=== PATIENT | female | born 1955 | race Caucasian/White ===

== ENCOUNTER → 2018-03-14 | Outpatient (CLI) | payer OTHER ==
--- NOTE | 2018-03-14 15:17 | DIREP ---
PROCEDURE: MRI SPINE CERVICAL W/O TECHNIQUE:Multiplanar MR images of the cervical spine were obtained without contrast. COMPARISON:None. INDICATIONS:HNP FINDINGS: ALIGNMENT:Straightening of the normal cervical curvature. Trace retrolisthesis of C6 on C7 measuring 2 mm. VERTEBRAE:Normal. SPINAL CORD:Normal. PARASPINAL AREA:Normal. OTHER:No additional findings. CERVICAL DISC LEVELS C2-C3:Normal. C3-C4:Normal. C4-C5:Moderate disc height loss with broad-based mild disc bulge causing moderate left and mild to moderate right neural foraminal narrowing. There is mild spinal canal narrowing. C5-C6:Broad-based disc bulge and facet hypertrophy causing moderate left and mild right neural foraminal narrowing. Mild spinal canal narrowing. C6-C7:Moderate disc height loss and broad-based disc bulge with facet hypertrophy causes moderate to severe neural foraminal and moderate spinal canal narrowing. C7-T1:Broad-based disc bulge with mild left and mild spinal canal narrowing. No right neural foraminal narrowing. CONCLUSION: 1. Trace retrolisthesis of C6 on C7 measuring 2 mm. 2. Degenerative changes at C6-C7 causes moderate to severe neural foraminal and moderate spinal canal narrowing. Other degenerative changes as above. Dictated by: Josiah Guaman MD on 03/14/2018 at 03:07 PM
== END | disposition home or self-care (01) ==
LOC: MRI 10:36
PROVIDERS: ATTEND Orthopaedic Surgery
DX: M47.892 Other spondylosis, cervical region (principal); M48.02 Spinal stenosis, cervical region; M50.20 Other cervical disc displacement, unspecified cervical region
CPT/HCPCS: 72141

== ENCOUNTER → 2018-05-04 | Outpatient (CLI) | payer OTHER, MEDICAID ==
--- NOTE | 2018-05-05 11:31 | DIREP ---
PROCEDURE:MRI SPINE LUMBAR W/O COMPARISON:None. INDICATIONS:M54.17 LUMBOSACRAL RADICULOPATHY, M54.16 LUMBAR RADICULOPATHY, M51.37 DDD TECHNIQUE:A comprehensive examination was performed utilizing a variety of imaging planes and imaging parameters to optimize visualization of suspected pathology. Images were performed without intravenous gadolinium contrast. FINDINGS: ALIGNMENT:Minimal L4 retrolisthesis measures 2 mm. Straightening of the lordosis. Mild left-sided curvature lower lumbar spine. VERTEBRA:No fracture, pars defect, or osseous lesion. CORD/CAUDA EQUINA:Normal size, contour, and signal intensity. PARASPINAL AREA:Normal with no visible mass. OTHER:None. LUMBAR DISC LEVELS T12-L1:Mild facet arthropathy. No significant foraminal or spinal stenosis. L1-L2:Minimal dorsal bulge. No significant foraminal or spinal stenosis. L2-L3:Moderate facet arthropathy. Thickened ligamentum flavum. Disc space height loss. Moderate dorsal bulge. Mild foraminal and spinal stenosis. L3-L4:Moderate facet arthropathy. Dorsal bulge is moderate. Disc space height loss. Moderate foraminal and spinal stenosis. L4-L5:Severe disc space height loss. Moderate facet arthropathy. Endplate degenerative changes. Dorsal disc osteophyte complex. Severe foraminal and spinal stenosis. Small facet synovial cyst on the left extends into the lateral paraspinal soft tissues measuring 7 mm. L5-S1:Severe facet arthropathy. Small central protrusion. Severe foraminal stenosis and mild spinal stenosis with encroachment on lateral recess nerve roots. CONCLUSION: 1. Severe degenerative disc disease and facet arthropathy at various levels. See above discussion. Dictated by: Eliecer Azar M.D. on 05/05/2018 at 11:26 AM
== END | disposition home or self-care (01) ==
LOC: RAD 14:55
PROVIDERS: ATTEND Anesthesiology Pain Medicine
DX: M51.17 Intervertebral disc disorders with radiculopathy, lumbosacral region (principal); M12.88 Other specific arthropathies, not elsewhere classified, other specified site; M48.061 Spinal stenosis, lumbar region without neurogenic claudication; M51.27 Other intervertebral disc displacement, lumbosacral region; M47.896 Other spondylosis, lumbar region; M25.78 Osteophyte, vertebrae; M71.38 Other bursal cyst, other site; M50.121 Cervical disc disorder at C4-C5 level with radiculopathy
CPT/HCPCS: 72148

== ENCOUNTER 2018-08-12 18:09 | Emergency (ER) | payer OTHER, MEDICAID ==
[~2018-08-12] VITALS: Ht 167.6 cm; Wt 81.6 kg
--- NOTE | 2018-08-12 18:09 | NUR ---
ARRIVAL PT ARRIVED VIA STRETCHER BY [facility] C/O LEFT ANKLE PAIN. PT STATES THAT AROUND 1530 WAS AT THE [facility] IN [place] WHEN SHE BECAME DIZZY AND FELL. PT C/O LEFT ANKLE PAIN. PT HAS ANKLE BRACE ON LEFT ANKLE UPON ARRIVAL. NO OBVIOUS DEFORMITY NOTED. EDP NOTIFIED OF PT ARRIVAL.
--- NOTE | 2018-08-12 18:17 | ER.PDOC ---
General Chief Complaint: Requesting Medical Care Stated Complaint: FALL Time seen by MD: 18:12 Source: patient, EMS Exam Limitations: no limitations History of Present Illness Initial Comments Pt fell this afternoon at about 3:30 after she got dizzy and injured left ankle , right elbow and knee Occurred: this afternoon Where: home Severity: moderate Injuries/Pain Location: upper extremity, lower extremity Loss of Consciousness: Dazed Associated Symptoms: denies symptoms Allergies: Coded Allergies: No Known Allergies (Unverified , 08/12/18) Review of Systems Musculoskeletal: see HPI All Other Systems: Reviewed and Negative Physical Exam General Appearance: No Apparent Distress, WD/WN Head: No Evidence of Injury Eyes: bilateral eye normal inspection Ears, Nose, Mouth, Throat: Hearing Grossly Normal, No Evidence of ENT Injury, No Dental Injury Neck: Non-Tender, Normal Alignment, Nexus criteria neg, Normal Inspection Cardiovascular/Respiratory: Regular Rate, Rhythm, No M/R/G, Normal Peripheral Pulses, No JVD, Normal Breath Sounds, No Respiratory Distress Gastrointestinal: Normal Bowel Sounds, No Organomegaly, No Pulsatile Mass, Non Tender, Soft Back: Normal Inspection, No CVA Tenderness, No Vertebral Tenderness Extremities: Joint Effusion (left ankle), Tenderness (left ankle, right knee and elbow) Skin: Normal Color, Warm/Dry, Other (abrasions on elbow and right knee) Hye Coma Score Best Eye Response: (4) Open Spontaneously Best Verbal Response: (5) Oriented Best Motor Response: (6) Obeys Commands Patience Total: 15 Progress Progress No fractures visualized, only soft tissue swelling Departure Time of Disposition: 18:55 Disposition: 01 HOME, SELF-CARE Impression: Primary Impression: Ankle sprain Additional Impression: Multiple abrasions Condition: Stable Hospital Course Stable Patient Instructions: Ankle Sprain, Ankle Sprain, Acute, with Phase I Rehab- SportsMed, Ankle Sprain, [id number] Referrals: JULITO STEWART MULTILITH OPERATOR (PCP) PRIMARY CARE PROVIDER Duration or Time Spent with Pa: 15 Problem Qualifiers SAHARA DOWNING MD Aug 12, 2018 18:17
[2018-08-12 18:18] VITALS: BP 136/77
--- NOTE | 2018-08-12 18:37 | NUR ---
RAD RADIOLOGY AT BEDSIDE.
--- NOTE | 2018-08-12 18:48 | DIREP ---
PROCEDURE:XRAY ELBOW 2VWS-RT COMPARISON:None. INDICATIONS:Fall FINDINGS:AP, lateral, and oblique view. BONES:Normal. JOINTS:Normal. No displaced anterior or posterior fat pads. SOFT TISSUES:Normal. OTHER:Normal. CONCLUSION:No acute visible fracture. See above description. Dictated by: Ishan Ac MD on 08/12/2018 at 06:46 PM
--- NOTE | 2018-08-12 18:48 | DIREP ---
PROCEDURE:XRAY ANKLE MIN 3VWS-LT COMPARISON:None. INDICATIONS:Fall. Pain FINDINGS:AP, lateral, and oblique view. BONES:There is a bandage or wrap that does result in mild laceration of the structures. No evidence of acute fracture. Moderate-sized inferior calcaneal bone spur. JOINTS:Normal. SOFT TISSUES:Moderate lateral malleolar soft tissue swelling. OTHER:No additional findings. CONCLUSION: No fracture. No dislocation. Moderate lateral malleolar soft tissue swelling. Moderate-sized inferior calcaneal bone spur. Dictated by: Ishan Ac MD on 08/12/2018 at 06:44 PM
--- NOTE | 2018-08-12 18:49 | DIREP ---
PROCEDURE:XRAY KNEE 2 VWS-RT COMPARISON:None. INDICATIONS:Fall FINDINGS:AP and lateral view BONES:No fracture. JOINTS:Mild degenerate change small osteophytes involving the medial compartment and posterior tibia. Small bone spur involving the superior aspect of the patella. No joint effusion. No dislocation. SOFT TISSUES:Normal. OTHER:No additional findings. CONCLUSION:No fracture. Mild degenerative changes within the medial compartment. Dictated by: Ishan Ac MD on 08/12/2018 at 06:46 PM
--- NOTE | 2018-08-12 18:57 | NUR ---
DISCHARGE PT IS CALLING FAMILY TO PICK HER UP
[2018-08-12 19:27] VITALS: BP 136/77
== END 2018-08-12 19:05 | disposition home or self-care (01) ==
LOC: EDBD 18:09 → ER 18:09
DX: S93.402A Sprain of unspecified ligament of left ankle, initial encounter (principal); S80.211A Abrasion, right knee, initial encounter; S50.311A Abrasion of right elbow, initial encounter; W19.XXXA Unspecified fall, initial encounter; Y93.89 Activity, other specified; Y92.098 Other place in other non-institutional residence as the place of occurrence of the external cause; Y99.8 Other external cause status
CPT/HCPCS: 73560; 99284; 73070-RT; 73610-LT

== ENCOUNTER 2018-08-21 11:39 | Emergency (ER) | payer OTHER, MEDICAID ==
[~2018-08-21] VITALS: Ht 165.1 cm; Wt 72.6 kg
[2018-08-21] MEDS ORDERED: SOLU-MEDROL IV STA (11:49)
[2018-08-21] MEDS ORDERED: NS 1000ML 1,000 ML STA (11:49)
[2018-08-21] MEDS ORDERED: SOLU-MEDROL ONE (11:57)
[2018-08-21 11:58] VITALS: BP 106/64
--- NOTE | 2018-08-21 12:03 | PCM.EKG ---
[facility] Test Date: 2018-08-21 Test Time: 12:02:22 Pat Name: MARILIN DAVIDSON Department: Room: Gender: F Gearman: RT : 1955 Requested By: GOSIA HALL Order Number: [id number] Reading MD: Measurements Intervals [place] Rate: 53 P: 56 VT: 186 QRS: 69 QRSD: 88 T: 68 QT: 504 QTc: 472 Interpretive Statements Sinus bradycardia with sinus arrhythmia Prolonged QT Abnormal ECG No previous ECG available for comparison Please click the below link to view image of tracing.
[2018-08-21 12:10] LABS: BASOPHIL % 0.3 % (0.0-0.2); EOSINOPHIL # 0.2 10^3/uL (0.0-0.2); HEMOGLOBIN 13.4 g/dL (12.0-15.0); LYMPHOCYTES # 2.8 10^3/uL (1.0-4.8); LYMPHOCYTES % 28.8 % (24.0-44.0); MEAN CELL HGB 33.5 pg (26-34); MEAN CELL HGB CONCENTRATION 33.3 g/dL (33-37); MEAN CORP VOLUME 100.8 fL (78-100); MEAN PLATELET VOLUME 10.1 fL (7.8-11.0); MONOCYTES # 0.9 10^3/uL (0.3-0.8); MONOCYTES % 9.6 % (5.0-12.0); NEUTROPHIL # 5.7 10^3/uL (1.8-7.7); NEUTROPHILS % 59.2 % (41.0-85.0); RED CELL DISTRIBUTION WIDTH 12.9 % (11.5-14.5); WHITE BLOOD CELL 9.6 10^3/uL (4.5-11.0)
--- NOTE | 2018-08-21 12:12 | ER.PDOC ---
General Chief Complaint: General Complaint Stated Complaint: DIZZY, WEAKNESS, HYPOTENSION TRAVEL OUT OF US: No Time seen by MD: 12:11 Source: patient Exam Limitations: no limitations History of Present Illness Timing/Duration: 4-6 hours Severity: mild Modifying Factors: improves with medication, improves with movement, improves with rest Associated Symptoms: syncope, weakness Allergies: Coded Allergies: No Known Allergies (Unverified , 08/12/18) Past Medical History Medical History: COPD, other Surgical History: cholecystectomy LMP (females 10-50): postmenopause Family History Significant Family History: no pertinent family hx Social History Smoking: non-smoker Alcohol Use: none Drug Use: none Reviewed Nursing Reviewed: Vital Signs, Abn. Noted Review of Systems All Other Systems: Reviewed and Negative Physical Exam General Appearance: No Apparent Distress EENT: eyes nml inspection Neck: Non-Tender Respiratory: chest non-tender CVS: reg rate & rhythm Gastrointestinal: Normal Bowel Sounds Back: Normal Inspection Extremities: Normal Range of Motion Neurologic/Psychiatric: literary writer II-XII NML as Tested Skin: Normal Color Lymphatic: No Adenopathy Results/Orders Results/Orders Laboratory Tests Test 08/21/18 11:49 08/21/18 12:03 Blood Gas Sample Site LEFT BRACHIAL ARTRY Eric Test N/A Lactic Acid (Blood Gas) 0.9 MMOL/L (0.5-1.0) Blood Gas Temperature 37 White Blood Count 9.6 10^3/uL (4.5-11.0) Red Blood Count 4.00 10^6/uL (4.00-5.20) Hemoglobin 13.4 g/dL (12.0-15.0) Hematocrit 40.3 % (36.0-46.0) Mean Corpuscular Volume 100.8 fL (78-100) Mean Corpuscular Hemoglobin 33.5 pg (26-34) Mean Corpuscular Hemoglobin Concent 33.3 g/dL (33-37) Red Cell Distribution Width 12.9 % (11.5-14.5) Platelet Count 235 10^3/uL (150-400) Mean Platelet Volume 10.1 fL (7.8-11.0) Neutrophils (%) (Auto) 59.2 % (41.0-85.0) Lymphocytes (%) (Auto) 28.8 % (24.0-44.0) Monocytes (%) (Auto) 9.6 % (5.0-12.0) Neutrophils # (Auto) 5.7 10^3/uL (1.8-7.7) Lymphocytes # (Auto) 2.8 10^3/uL (1.0-4.8) Monocytes # (Auto) 0.9 10^3/uL (0.3-0.8) Absolute Immature Granulocyte (auto 0.01 10^3 u/L (0-2) Eosinophils % 2.0 % (0.0-5.0) Basophils % 0.3 % (0.0-0.2) Basophils # 0.0 10^3/uL (0.0-0.1) Eosinophil Count 0.2 10^3/uL (0.0-0.2) Prothrombin Time 10.4 SEC (9.8-11.9) Prothrombin Time INR (Non-Therap) 1.0 Activated Partial Thromboplast Time 25.6 SEC (24.67-30.72) D-Dimer 1.43 mg/L (0.19-0.49) Sodium Level 138 mmol/L (132-145) Potassium Level 4.5 mmol/L (3.6-5.2) Chloride Level 100.0 mmol/L (96-109) Carbon Dioxide Level 27.0 mmol/L (20.0-32) Anion Gap 15.5 Blood Urea Nitrogen 19 mg/dL (7-18) Creatinine 2.10 mg/dL (0.59-1.40) Estimated GFR () 28.9 (>/=60) BUN/Creatinine Ratio 9.0 Glucose Level 68 mg/dL (70-110) Calcium Level 8.9 mg/dL (8.4-10.5) Total Bilirubin 0.3 mg/dL (0.2-1.0) Aspartate Amino Transf (AST/SGOT) 18 U/L (0-35) Alanine Aminotransferase (ALT/SGPT) 18 U/L (12-78) Alkaline Phosphatase 89 U/L (50-136) Total Creatine Kinase 44 U/L (26-192) Troponin I < 0.02 ng/mL (0.00-0.05) Pro-B-Type Natriuretic Peptide 45 pg/mL (0-125) Total Protein 6.5 g/dL (6.4-8.2) Albumin 3.7 g/dL (3.4-5.0) Globulin 2.8 Percent Immature Gran (Cell Imm) 0.10 % (0.00-0.50) Helicobacter pylori Screen NEGATIVE (NEGATIVE) Administered Medications Medications (Trade) Dose Ordered Sig/Lester Route PRN Reason Start Time Stop Time Status Last Admin Dose Admin Sodium Chloride 1,000 ml @ 0 mls/hr Q0M STAT IV 08/21/18 11:49 08/21/18 11:52 DC 08/21/18 11:59 Methylprednisolone Sodium Succinate (Solu-Medrol) 250 mg STAT STAT IV 08/21/18 11:49 08/21/18 11:52 DC 08/21/18 11:59 Sodium Chloride 1,000 ml @ 0 mls/hr Q0M ONCE IV 08/21/18 13:30 08/21/18 13:31 UNV 08/21/18 13:31 EKG/XRAY/CT/US EKG: NSR, no ST T wave changes Course Duration or Total Time Spent w: 15 Vitals & review Data Vital Sign - Last 24 Hours 08/12/18 08/21/18 08/21/18 08/21/18 19:27 11:53 11:53 11:58 Temp 98.7 98.7 98.7 98.7 98.7 98.7 Pulse 52 61 59 61 Resp 18 18 18 B/P (MAP) 106/64 (78) Pulse Ox 98 98 O2 Delivery Room Air Room Air Laboratory Tests Test 08/21/18 11:49 08/21/18 12:03 Blood Gas Sample Site LEFT BRACHIAL ARTRY Eric Test N/A Lactic Acid (Blood Gas) 0.9 MMOL/L Blood Gas Temperature 37 White Blood Count 9.6 10^3/uL Red Blood Count 4.00 10^6/uL Hemoglobin 13.4 g/dL Hematocrit 40.3 % Mean Corpuscular Volume 100.8 fL Mean Corpuscular Hemoglobin 33.5 pg Mean Corpuscular Hemoglobin Concent 33.3 g/dL Red Cell Distribution Width 12.9 % Platelet Count 235 10^3/uL Mean Platelet Volume 10.1 fL Neutrophils (%) (Auto) 59.2 % Lymphocytes (%) (Auto) 28.8 % Monocytes (%) (Auto) 9.6 % Neutrophils # (Auto) 5.7 10^3/uL Lymphocytes # (Auto) 2.8 10^3/uL Monocytes # (Auto) 0.9 10^3/uL Absolute Immature Granulocyte (auto 0.01 10^3 u/L Eosinophils % 2.0 % Basophils % 0.3 % Basophils # 0.0 10^3/uL Eosinophil Count 0.2 10^3/uL Prothrombin Time 10.4 SEC Prothrombin Time INR (Non-Therap) 1.0 Activated Partial Thromboplast Time 25.6 SEC D-Dimer 1.43 mg/L Sodium Level 138 mmol/L Potassium Level 4.5 mmol/L Chloride Level 100.0 mmol/L Carbon Dioxide Level 27.0 mmol/L Anion Gap 15.5 Blood Urea Nitrogen 19 mg/dL Creatinine 2.10 mg/dL Estimated GFR () 28.9 BUN/Creatinine Ratio 9.0 Glucose Level 68 mg/dL Calcium Level 8.9 mg/dL Total Bilirubin 0.3 mg/dL Aspartate Amino Transf (AST/SGOT) 18 U/L Alanine Aminotransferase (ALT/SGPT) 18 U/L Alkaline Phosphatase 89 U/L Total Creatine Kinase 44 U/L Troponin I < 0.02 ng/mL Pro-B-Type Natriuretic Peptide 45 pg/mL Total Protein 6.5 g/dL Albumin 3.7 g/dL Globulin 2.8 Percent Immature Gran (Cell Imm) 0.10 % Helicobacter pylori Screen NEGATIVE Sepsis Infection Criteria Pres: None O2 Sat by Pulse Oximetry: 98 Departure Time of Disposition: 14:33 Disposition: 01 HOME, SELF-CARE Impression: Primary Impression: Medication side effects Condition: Improved Referrals: JULITO STEWART EXPANDED FUNCTION DENTAL ASSISTANT (PCP) PRIMARY CARE PROVIDER Comments HOLD LISINOPRIL REPEAT BMP IN 1-2 DAYS Duration or Time Spent with Pa: 2 HRS GOSIA HALL MD Aug 21, 2018 12:12
--- NOTE | 2018-08-21 12:27 | DIREP ---
PROCEDURE:CHEST 2 VIEWS COMPARISON:None. INDICATIONS:hypotension FINDINGS: LUNGS/PLEURA:No significant pulmonary parenchymal abnormalities. No effusions. VASCULATURE:Normal. Unremarkable pulmonary vasculature. CARDIAC:Normal. No cardiac silhouette abnormality or cardiomegaly. MEDIASTINUM:Normal. No visible mass or adenopathy. BONES:Normal. No fracture or visible bony lesion. OTHER:Negative. CONCLUSION:No active or acute cardiopulmonary disease is seen. Dictated by: Be Underwood M.D. on 08/21/2018 at 12:25 PM
[2018-08-21 12:47] LABS: ALANINE AMINOTRANSFERASE(ML) 18 U/L (12-78); ALKALINE PHOSPHATASE 89 U/L (50-136); ASPARTATE AMINO TRANSFERASE 18 U/L (0-35); CALCIUM 8.9 mg/dL (8.4-10.5); GLUCOSE 68 mg/dL (70-110)
[2018-08-21] MEDS ORDERED: TORADOL ONE (13:02)
[2018-08-21] MEDS ORDERED: NS 1000ML 1,000 ML ONE (13:20)
[2018-08-21] MEDS ORDERED: NS 1000ML 1,000 ML IV ONE (13:30)
[2018-08-21 14:20] VITALS: BP 94/58
[2018-08-21 14:51] VITALS: BP 94/58
== END 2018-08-21 14:27 | disposition home or self-care (01) ==
LOC: ER 11:39 → EDBD 11:39 → ER 14:27
DX: R55 Syncope and collapse (principal); T50.905A Adverse effect of unspecified drugs, medicaments and biological substances, initial encounter; Y92.89 Other specified places as the place of occurrence of the external cause
CPT/HCPCS: 36415; 36600; 71046; 80053; 82533; 82550; 83605; 83880; 84484; 85025; 85379; 85610; 85730; 86677; 93005; 96361; 96374; 99284; J1885; J2930; J7030